=== PATIENT | female | born 1945 | race Two or more races ===

== ENCOUNTER 2019-02-22 | Observation (INO) ==
[2019-02-22] MEDS ORDERED: TYLENOL 325 MG TAB PO ONE ×2 (01:19→01:20)
[2019-02-22] MEDS ORDERED: CATAPRES TAB 0.1 MG PO ONE ×2 (01:19→04:17)
[2019-02-22] MEDS ORDERED: CATAPRES TAB 0.1 MG ONE ×2 (01:20→04:17)
--- NOTE | 2019-02-22 01:36 | DR.HTN ---
HPI Time Seen Time Seen by Provider: 02/22/19 00:30 Primary Care Physician Primary Care Physician: Dr. Marinelli Complaints Chief Complaint:: Patient stated that "my blood pressure just keeps climbing" Patient stated that she had some dizziness and headache on 02/20/19 but none on 02/21/19 just a full feeling in her head. Self Treatment fo Chief Complaint: took Clonidine, Hydralazine,Xanax, Bystolic, Losartan Source History Provided: Patient Mode of Arrival Mode of Arrival: Ambulatory Timing Onset of Chief Complaint: 02/21/19 PMH PMH Past Medical History: Yes Past Medical History: Dyslipidemia and Hypertension Past Surgical History: Yes Surgical History: Other Past Surgical History Comment: Right Ovary removed Family History History of Family Medical Conditions: Yes Family Medical History: Coronary Artery Disease and Hypertension Social History Alcohol Use: None Do you use any recreational Drugs:: No Lives With: Spouse Lives Where: Home infectious screening In the last 2 months have you had wt loss of >10#?: NO Have you had fever, night sweats or hemotysis?: No Have you traveled outside the country in the last 6 months?: No Isolation: Standard PE Vital Signs Vitals: Temperature 97.6 F Pulse Rate 50 Respiratory Rate 18 Blood Pressure [Left Arm] 170/73 Blood Pressure 185/72 O2 Sat by Pulse Oximetry 97 ROR Labs Reviewed Result Diagrams: 02/22/19 02:34 02/22/19 02:34 Laboratory: WBC 5.8 X10^3/uL (3.6-10.0) 02/22/19 02:34 RBC 4.15 X10^6/uL (3.5-5.4) 02/22/19 02:34 Hgb 12.2 g/dL (12.0-16.0) 02/22/19 02:34 Hct 34.7 % (36.0-47.0) L 02/22/19 02:34 MCV 83.7 fL (80.0-100.0) 02/22/19 02:34 MCH 29.3 pg (27.0-34.0) 02/22/19 02:34 MCHC 35.1 g/dL (33.0-35.0) H 02/22/19 02:34 RDW 13.4 % (11.6-16.5) 02/22/19 02:34 Plt Count 279 X10^3/uL (150.0-450.0) 02/22/19 02:34 MPV 7.5 fL (7.4-11.0) 02/22/19 02:34 Neut % (Auto) 69.2 % (42.0-75.0) 02/22/19 02:34 Lymph % (Auto) 19.9 % (21.0-51.0) L 02/22/19 02:34 [place] % (Auto) 9.0 % (0.0-13.0) 02/22/19 02:34 Eos % (Auto) 1.3 % (0.9-2.9) 02/22/19 02:34 Baso % (Auto) 0.6 % (0.2-1.0) 02/22/19 02:34 Neut # (Auto) 4.0 x10^3/uL (2.2-4.8) 02/22/19 02:34 Lymph # (Auto) 1.1 X10^3/uL (1.3-2.9) L 02/22/19 02:34 [place] # (Auto) 0.5 x10^3/uL (0.3-0.8) 02/22/19 02:34 Eos # (Auto) 0.1 x10^3/uL (0.0-0.2) 02/22/19 02:34 Baso # (Auto) 0.0 X10^3/uL (0.0-0.1) 02/22/19 02:34 Absolute Nucleated RBC 0.0 /100WBC 02/22/19 02:34 Sodium 134 mmol/L (136-145) L 02/22/19 02:34 Corrected Sodium 134 mmol/L (136-145) L 02/22/19 02:34 Potassium 3.8 mmol/L (3.5-5.1) 02/22/19 02:34 Chloride 97 mmol/L (98-107) L 02/22/19 02:34 Carbon Dioxide 27.4 mmol/L (21-32) 02/22/19 02:34 BUN 12 mg/dL (7-18) 02/22/19 02:34 Creatinine 0.69 mg/dL (0.55-1.02) 02/22/19 02:34 Est GFR (MDRD) Af Amer > 60 (>60) 02/22/19 02:34 Est GFR (MDRD) Non-Af > 60 (>60) 02/22/19 02:34 Glucose 116 mg/dL (65-99) H 02/22/19 02:34 Calcium 8.8 mg/dL (8.5-10.1) 02/22/19 02:34 Corrected Calcium TNP 02/22/19 02:34 Total Bilirubin 0.40 mg/dL (0.2-1.0) 02/22/19 02:34 AST 16 Units/L (15-37) 02/22/19 02:34 ALT 23 Units/L (12-78) 02/22/19 02:34 Alkaline Phosphatase 67 Units/L (46-116) 02/22/19 02:34 Creatine Kinase 84 Units/L (26-192) 02/22/19 02:34 CK-MB (CK-2) 1.3 ng/mL (0-4.0) 02/22/19 02:34 CK/CKMB % Calc 1.6 % (<4) 02/22/19 02:34 Troponin I < 0.02 ng/mL (0-1.5) 02/22/19 02:34 Total Protein 6.3 g/dL (6.4-8.2) L 02/22/19 02:34 Albumin 3.6 g/dL (3.4-5.0) 02/22/19 02:34 Globulin 2.7 g/dL (2.5-4.5) 02/22/19 02:34 Albumin/Globulin Ratio 1.3 Ratio (1.1-2.1) 02/22/19 02:34 Opioid Opioid Risk Tool Age (Jose Armando box if 16-45): No History of Preadolescent Sexual Abuse: No Total: 0 Total Score Risk Category: Low Risk Copyright: Tone BREAUX predicting aberrant behaviors Diagnosis Discharge Problem: Hypertensive emergency, Hypertension, uncontrolled Instructions Forms: Excuse From Work Patient Portal
[2019-02-22 02:45] LABS: BASOPHILS % (AUTO) 0.6 % (0.2-1.0); EOSINOPHILS # (AUTO) 0.1 x10^3/uL (0.0-0.2); EOSINOPHILS % (AUTO) 1.3 % (0.9-2.9); HEMATOCRIT 34.7 % (36.0-47.0); HEMOGLOBIN 12.2 g/dL (12.0-16.0); LYMPHOCYTES # (AUTO) 1.1 X10^3/uL (1.3-2.9); LYMPHOCYTES % (AUTO) 19.9 % (21.0-51.0); MEAN CORPUSCULAR HEMOGLOBIN 29.3 pg (27.0-34.0); MEAN CORPUSCULAR HGB CONC 35.1 g/dL (33.0-35.0); MEAN CORPUSCULAR VOLUME 83.7 fL (80.0-100.0); MEAN PLATELET VOLUME 7.5 fL (7.4-11.0); MONOCYTES # (AUTO) 0.5 x10^3/uL (0.3-0.8); NEUTROPHILS % (AUTO) 69.2 % (42.0-75.0); PLATELET COUNT 279 X10^3/uL (150.0-450.0); RED BLOOD COUNT 4.15 X10^6/uL (3.5-5.4); RED CELL DISTRIBUTION WIDTH 13.4 % (11.6-16.5); WHITE BLOOD COUNT 5.8 X10^3/uL (3.6-10.0)
[2019-02-22 03:00] LABS: BLOOD UREA NITROGEN 12 mg/dL (7-18); CALCIUM 8.8 mg/dL (8.5-10.1); CARBON DIOXIDE 27.4 mmol/L (21-32); CHLORIDE 97 mmol/L (98-107); COR NA(FOR HYPERGLY) 134 mmol/L (136-145); CREATININE 0.69 mg/dL (0.55-1.02); SODIUM 134 mmol/L (136-145); TROPONIN I < 0.02 ng/mL (0-1.5); eGFR NON BLACK RACES > 60 (>60)
[2019-02-22 03:04] LABS: ALANINE AMINOTRANSFERASE 23 Units/L (12-78); ALBUMIN 3.6 g/dL (3.4-5.0); ALKALINE PHOSPHATASE 67 Units/L (46-116); ASPARTATE AMINO TRANSFERASE 16 Units/L (15-37); CKMB % 1.6 % (<4); CREATINE KINASE 84 Units/L (26-192); CREATINE KINASE MB 1.3 ng/mL (0-4.0); TOTAL PROTEIN 6.3 g/dL (6.4-8.2)
[2019-02-22] MEDS ORDERED: VASOTEC INJ 2.5 MG VIAL IVP ONE ×2 (05:07)
[2019-02-22] MEDS ORDERED: VASOTEC INJ 2.5 MG VIAL ONE (05:08)
[2019-02-22] MEDS ORDERED: VASOTEC INJ 2.5 MG VIAL IVP PRN ×2 (07:49→15:02)
[2019-02-22] MEDS ORDERED: APRESOLINE TAB 25 MG PO SCH (09:00)
[2019-02-22 09:37] LABS: CKMB % 1.8 % (<4); CREATINE KINASE 79 Units/L (26-192); CREATINE KINASE MB 1.4 ng/mL (0-4.0); TROPONIN I < 0.02 ng/mL (0-1.5)
[2019-02-22] MEDS ORDERED: OLMESARTAN HYDROCHLOROTHIAZIDE PO SCH (09:45)
[2019-02-22] MEDS ORDERED: HYDROCHLOROTHIAZIDE 12.5 MG CAP PO SCH (10:00)
[2019-02-22] MEDS: APRESOLINE TAB 25 MG PO SCH ×3 (10:19→21:00)
[2019-02-22] MEDS: BENICAR TAB 40 MG PO SCH (10:19)
[2019-02-22 11:01] VITALS: BMI 32.4
--- NOTE | 2019-02-22 11:16 | DR.H&P ---
H&P History & Physical for Day of: H&P Date: 02/22/19 Chief Complaint Chief Complaint: elevated BP, headache and dizziness Allergies Allergies Allergy/AdvReac Type Severity Reaction Status Date / Time diltiazem [From Cardizem] Allergy Verified 02/22/19 00:34 History of Present Illness History of Present Illness: Ms. Salas is a 73y/o female with a PMH of unco ntrolled HTN. Patient presented to the ED with headache and BP 204/101. She has had uncontrolled BP for over a year and sees [facility]. Her medications were adjusted 3 weeks ago, she was told to take Hydralazine 100 mg twice a day and increase Bystolic to 20 mg daily. She reports no improvement in her BP with this changes. Her SBP usually runs in 160s -190s. She denies headac he, dizziness, chest pain or SOB. She was started on Diltiazem but developed a diffuse rash so that was stopped. She has been taking clonidine 0.1 mg prn if SBP>160. She took one yesterday but did not help. She has tried clonidine patch but reports feeling sick with that. Past Medical History Past Medical History: Dyslipidemia and Hypertension Past Surgical History Surgical History: Ortho Surgery and Other Family History Family Medical History: Diabetes Mellitus, Cancer, Coronary Artery Disease and Hypertension Social History Does patient currently use any type of tobacco product: No Have you used tobacco products in the last 12 months: No Type of Tobacco Use: None Does any household member use tobacco: No Alcohol Use: None Drug Use: None Prescription drug monitoring program results: PDMP was not reviewed Medications Home Medications: diltiazem [From Cardizem] Allergy (Verified 02/22/19 00:34) CONTINUE taking the following medications acetaminophen [Tylenol Arthritis Pain] 1 mg PO PRN PRN 02/22/19 [History] alprazolam 0.25 mg PO BID 02/22/19 [History] aspirin [Aspir-81] 81 mg PO HS 02/22/19 [History] calcium carbonate-vitamin D3 [Calcium 600 with Vitamin D3] 1 cap PO HS 02/22/19 [History] hydralazine 100 mg PO DAILY 02/22/19 [History] [id number] [Centrum Silver Women] 1 tab PO DAILY 02/22/19 [History] nebivolol [Bystolic] 20 mg PO DAILY 02/22/19 [History] olmesartan-hydrochlorothiazide 1 tab PO DAILY 02/22/19 [History] pravastatin 40 mg PO HS 02/22/19 [History] Labs Result Diagrams: 02/22/19 02:34 02/22/19 02:34 Labs: Laboratory WBC 5.8 X10^3/uL (3.6-10.0) 02/22/19 02:34 RBC 4.15 X10^6/uL (3.5-5.4) 02/22/19 02:34 Hgb 12.2 g/dL (12.0-16.0) 02/22/19 02:34 Hct 34.7 % (36.0-47.0) L 02/22/19 02:34 MCV 83.7 fL (80.0-100.0) 02/22/19 02:34 MCH 29.3 pg (27.0-34.0) 02/22/19 02:34 MCHC 35.1 g/dL (33.0-35.0) H 02/22/19 02:34 RDW 13.4 % (11.6-16.5) 02/22/19 02:34 Plt Count 279 X10^3/uL (150.0-450.0) 02/22/19 02:34 MPV 7.5 fL (7.4-11.0) 02/22/19 02:34 Neut % (Auto) 69.2 % (42.0-75.0) 02/22/19 02:34 Lymph % (Auto) 19.9 % (21.0-51.0) L 02/22/19 02:34 [place] % (Auto) 9.0 % (0.0-13.0) 02/22/19 02:34 Eos % (Auto) 1.3 % (0.9-2.9) 02/22/19 02:34 Baso % (Auto) 0.6 % (0.2-1.0) 02/22/19 02:34 Neut # (Auto) 4.0 x10^3/uL (2.2-4.8) 02/22/19 02:34 Lymph # (Auto) 1.1 X10^3/uL (1.3-2.9) L 02/22/19 02:34 [place] # (Auto) 0.5 x10^3/uL (0.3-0.8) 02/22/19 02:34 Eos # (Auto) 0.1 x10^3/uL (0.0-0.2) 02/22/19 02:34 Baso # (Auto) 0.0 X10^3/uL (0.0-0.1) 02/22/19 02:34 Absolute Nucleated RBC 0.0 /100WBC 02/22/19 02:34 Sodium 134 mmol/L (136-145) L 02/22/19 02:34 Corrected Sodium 134 mmol/L (136-145) L 02/22/19 02:34 Potassium 3.8 mmol/L (3.5-5.1) 02/22/19 02:34 Chloride 97 mmol/L (98-107) L 02/22/19 02:34 Carbon Dioxide 27.4 mmol/L (21-32) 02/22/19 02:34 BUN 12 mg/dL (7-18) 02/22/19 02:34 Creatinine 0.69 mg/dL (0.55-1.02) 02/22/19 02:34 Est GFR (MDRD) Af Amer > 60 (>60) 02/22/19 02:34 Est GFR (MDRD) Non-Af > 60 (>60) 02/22/19 02:34 Glucose 116 mg/dL (65-99) H 02/22/19 02:34 Calcium 8.8 mg/dL (8.5-10.1) 02/22/19 02:34 Corrected Calcium TNP 02/22/19 02:34 Total Bilirubin 0.40 mg/dL (0.2-1.0) 02/22/19 02:34 AST 16 Units/L (15-37) 02/22/19 02:34 ALT 23 Units/L (12-78) 02/22/19 02:34 Alkaline Phosphatase 67 Units/L (46-116) 02/22/19 02:34 Creatine Kinase 79 Units/L (26-192) 02/22/19 09:09 CK-MB (CK-2) 1.4 ng/mL (0-4.0) 02/22/19 09:09 CK/CKMB % Calc 1.8 % (<4) 02/22/19 09:09 Troponin I < 0.02 ng/mL (0-1.5) 02/22/19 09:09 Total Protein 6.3 g/dL (6.4-8.2) L 02/22/19 02:34 Albumin 3.6 g/dL (3.4-5.0) 02/22/19 02:34 Globulin 2.7 g/dL (2.5-4.5) 02/22/19 02:34 Albumin/Globulin Ratio 1.3 Ratio (1.1-2.1) 02/22/19 02:34 Review of Systems Constitutional: No Symptoms Reported; denies Fever, Sweats and Weakness Eyes: No Symptoms Reported ENT: No Symptoms Reported Respiratory: SOB with Excertion; denies Cough, Shortness of Breath and Pleuritic Pain Cardiovascular: Edema; denies Chest Pain, Palpitations and Light Headedness Gastrointestinal: denies Nausea, Vomiting, Abdominal Pain, Diarrhea and Constipation Genitourinary: No Symptoms Reported Musculoskeletal: Back Pain Skin: denies No Symptoms Reported Neurological: denies Weakness, Numbness and Confusion Physical Exam Vital Signs: Temperature 98.5 F Pulse Rate 53 Respiratory Rate 18 Blood Pressure [Left Arm] 170/73 Blood Pressure 194/74 O2 Sat by Pulse Oximetry 99 Oriented: Normal Eyes: Normal Throat: Normal Respiratory: Clear Throughout Cardiovascular: Normal, Bradycardia and Edema Auscultation: Bowel Sounds: Normal Palpation: Normal Tenderness: Normal Skin: Normal Musculoskeletal: Normal Psychiatric: Normal Mood Description: Calm Affect: Normal Speech Pattern: Clear and Appropriate Assessment/Plan (1) Hypertensive urgency: Status: Acute Plan: SBP in 200s on admission, currently 185/72. Received clonidine 0.1 mg x 2 and started on Vasotec 1.25 mg IV q6hrs. Will resume home meds with changes: Hydralazine 100 mg TID, Olmesartan/Hctz. Hold Bystolic due to bradycardia. Continue Vasotec (2) Hypertension, uncontrolled: Status: Acute Plan: adjust BP medications, continue Vasotec. Troponin (-) (3) HLD (hyperlipidemia): Status: Acute Plan: continue statin.
[2019-02-22] MEDS ORDERED: XANAX PO ONE (11:38)
[2019-02-22] MEDS ORDERED: XANAX ONE (11:40)
[2019-02-22] MEDS: NexIUM PO SCH (12:05)
[2019-02-22 15:12] LABS: CKMB % 1.6 % (<4); CREATINE KINASE 71 Units/L (26-192); CREATINE KINASE MB 1.1 ng/mL (0-4.0); TROPONIN I < 0.02 ng/mL (0-1.5)
[2019-02-22] MEDS ORDERED: MICRO K EXTEN CAP 10 MEQ PO PRN (19:24)
[2019-02-22] MEDS ORDERED: KLOR-CON PO PRN (19:24)
[2019-02-22] MEDS ORDERED: POTASSIUM CHL 40 MEQ/NS 0.45% 500 ML IV PRN (19:24)
[2019-02-22] MEDS ORDERED: POTASSIUM CHLORIDE LIQ 20 MEQ UDC PO PRN (19:24)
[2019-02-22] MEDS ORDERED: POTASSIUM CHL 60 MEQ/NS 0.45% 500 ML IV PRN (19:24)
[2019-02-22] MEDS ORDERED: K-DUR TAB 20 MEQ PO PRN (19:24)
[2019-02-22] MEDS ORDERED: K-RIDER 10 MEQ/NS 100 ML 10 MEQ/100 ML BAG IV PRN (19:24)
[2019-02-22] MEDS ORDERED: MAGNESIUM SULFATE 1 GRAM/100 mL PREMIX 1 GM/100 ML BAG IV PRN (19:24)
[2019-02-22] MEDS: OSCAL+D or CALTRATE+D PO SCH (20:58)
[2019-02-22] MEDS: PRAVACHOL PO SCH (20:59)
[2019-02-22] MEDS: XANAX PO SCH (20:59)
[2019-02-22] MEDS: TYLENOL 325 MG TAB PO PRN (20:59)
[2019-02-22] MEDS: ASPIRIN EC 81 MG PO SCH (20:59)
[2019-02-22 21:39] LABS: CKMB % 1.5 % (<4); CREATINE KINASE 66 Units/L (26-192); CREATINE KINASE MB < 1.0 ng/mL (0-4.0); TROPONIN I < 0.02 ng/mL (0-1.5)
[2019-02-23] MEDS: APRESOLINE TAB 25 MG PO SCH ×3 (05:04→21:02)
[2019-02-23 05:58] LABS: BASOPHILS % (AUTO) 0.6 % (0.2-1.0); EOSINOPHILS # (AUTO) 0.2 x10^3/uL (0.0-0.2); EOSINOPHILS % (AUTO) 2.6 % (0.9-2.9); HEMATOCRIT 39.3 % (36.0-47.0); HEMOGLOBIN 13.8 g/dL (12.0-16.0); LYMPHOCYTES # (AUTO) 1.1 X10^3/uL (1.3-2.9); LYMPHOCYTES % (AUTO) 19.7 % (21.0-51.0); MEAN CORPUSCULAR HEMOGLOBIN 29.5 pg (27.0-34.0); MEAN CORPUSCULAR HGB CONC 35.1 g/dL (33.0-35.0); MEAN CORPUSCULAR VOLUME 83.9 fL (80.0-100.0); MEAN PLATELET VOLUME 7.8 fL (7.4-11.0); MONOCYTES # (AUTO) 0.4 x10^3/uL (0.3-0.8); MONOCYTES % (AUTO) 7.1 % (0.0-13.0); NEUTROPHILS # (AUTO) 4.1 x10^3/uL (2.2-4.8); PLATELET COUNT 318 X10^3/uL (150.0-450.0); RED BLOOD COUNT 4.68 X10^6/uL (3.5-5.4); RED CELL DISTRIBUTION WIDTH 13.8 % (11.6-16.5); WHITE BLOOD COUNT 5.8 X10^3/uL (3.6-10.0)
[2019-02-23 06:08] LABS: ALANINE AMINOTRANSFERASE 26 Units/L (12-78); ALBUMIN 3.9 g/dL (3.4-5.0); ALKALINE PHOSPHATASE 75 Units/L (46-116); ASPARTATE AMINO TRANSFERASE 17 Units/L (15-37); BLOOD UREA NITROGEN 9 mg/dL (7-18); CALCIUM 9.4 mg/dL (8.5-10.1); CARBON DIOXIDE 29.8 mmol/L (21-32); CHLORIDE 95 mmol/L (98-107); CREATININE 0.62 mg/dL (0.55-1.02); MAGNESIUM 1.9 mg/dL (1.7-2.9); SODIUM 132 mmol/L (136-145); TOTAL PROTEIN 6.9 g/dL (6.4-8.2); eGFR NON BLACK RACES > 60 (>60)
[2019-02-23] MEDS ORDERED: NICOTINE PATCH TD SCH (09:00)
[2019-02-23] MEDS: XANAX PO SCH ×2 (09:20→20:19)
[2019-02-23] MEDS: NexIUM PO SCH ×2 (09:20→10:54)
[2019-02-23] MEDS: BENICAR TAB 40 MG PO SCH (09:25)
[2019-02-23] MEDS: HYDROCHLOROTHIAZIDE 12.5 MG CAP PO SCH (09:25)
--- NOTE | 2019-02-23 10:11 | PCM.PROG ---
Progress Note Progress Note for Day of Date of Exam: 02/23/19 Subjective Subjective: Patient seen at bedside, feeling better. Reports having a rough night, SBP in 200s around 3 am. She had a headache and nausea then but resolved now. Denies chest pain or SOB. Patient has a lot of anxiety and is always monitoring her BP closely. She reports being anxious all the time due to small stressors at home. Past Medical Family Social History Past Med/Fam/Surg Hx: No changes since H&P Allergies: Allergies diltiazem [From Cardizem] Allergy (Verified 02/22/19 00:34) Review of Systems ROS: No change since H&P Vital Signs and I&O's Vital Signs: Temperature 98 F Pulse Rate 67 Respiratory Rate 18 Blood Pressure [Left Arm] 170/73 Blood Pressure 144/65 O2 Sat by Pulse Oximetry 100 Intake and Output: Intake & Output 02/20/19 02/21/19 02/22/19 02/23/19 23:59 23:59 23:59 23:59 Intake Total 1470 / 1470 510 / 510 Balance 1470 / 1470 510 / 510 Physical Exam Oriented: Normal Eyes: Normal Throat: Normal Cardiovascular: Normal and Edema Auscultation: Bowel Sounds: Normal Tenderness: Normal Skin: Normal Musculoskeletal: Normal Psychiatric: Normal Mood Description: Calm Affect: Normal Speech Pattern: Clear and Appropriate Laboratory and Diagnostics Result Diagrams: 02/23/19 05:15 02/23/19 05:15 Labs: Laboratory WBC 5.8 X10^3/uL (3.6-10.0) 02/23/19 05:15 RBC 4.68 X10^6/uL (3.5-5.4) 02/23/19 05:15 Hgb 13.8 g/dL (12.0-16.0) 02/23/19 05:15 Hct 39.3 % (36.0-47.0) 02/23/19 05:15 MCV 83.9 fL (80.0-100.0) 02/23/19 05:15 MCH 29.5 pg (27.0-34.0) 02/23/19 05:15 MCHC 35.1 g/dL (33.0-35.0) H 02/23/19 05:15 RDW 13.8 % (11.6-16.5) 02/23/19 05:15 Plt Count 318 X10^3/uL (150.0-450.0) 02/23/19 05:15 MPV 7.8 fL (7.4-11.0) 02/23/19 05:15 Neut % (Auto) 70.0 % (42.0-75.0) 02/23/19 05:15 Lymph % (Auto) 19.7 % (21.0-51.0) L 02/23/19 05:15 [place] % (Auto) 7.1 % (0.0-13.0) 02/23/19 05:15 Eos % (Auto) 2.6 % (0.9-2.9) 02/23/19 05:15 Baso % (Auto) 0.6 % (0.2-1.0) 02/23/19 05:15 Neut # (Auto) 4.1 x10^3/uL (2.2-4.8) 02/23/19 05:15 Lymph # (Auto) 1.1 X10^3/uL (1.3-2.9) L 02/23/19 05:15 [place] # (Auto) 0.4 x10^3/uL (0.3-0.8) 02/23/19 05:15 Eos # (Auto) 0.2 x10^3/uL (0.0-0.2) 02/23/19 05:15 Baso # (Auto) 0.0 X10^3/uL (0.0-0.1) 02/23/19 05:15 Absolute Nucleated RBC 0.0 /100WBC 02/23/19 05:15 Sodium 132 mmol/L (136-145) L 02/23/19 05:15 Corrected Sodium TNP 02/23/19 05:15 Potassium 4.3 mmol/L (3.5-5.1) 02/23/19 05:15 Chloride 95 mmol/L (98-107) L 02/23/19 05:15 Carbon Dioxide 29.8 mmol/L (21-32) 02/23/19 05:15 BUN 9 mg/dL (7-18) 02/23/19 05:15 Creatinine 0.62 mg/dL (0.55-1.02) 02/23/19 05:15 Est GFR (MDRD) Af Amer > 60 (>60) 02/23/19 05:15 Est GFR (MDRD) Non-Af > 60 (>60) 02/23/19 05:15 Glucose 99 mg/dL (65-99) 02/23/19 05:15 Calcium 9.4 mg/dL (8.5-10.1) 02/23/19 05:15 Corrected Calcium TNP 02/23/19 05:15 Magnesium 1.9 mg/dL (1.7-2.9) 02/23/19 05:15 Total Bilirubin 0.50 mg/dL (0.2-1.0) 02/23/19 05:15 AST 17 Units/L (15-37) 02/23/19 05:15 ALT 26 Units/L (12-78) 02/23/19 05:15 Alkaline Phosphatase 75 Units/L (46-116) 02/23/19 05:15 Creatine Kinase 66 Units/L (26-192) 02/22/19 20:56 CK-MB (CK-2) < 1.0 ng/mL (0-4.0) 02/22/19 20:56 CK/CKMB % Calc 1.5 % (<4) 02/22/19 20:56 Troponin I < 0.02 ng/mL (0-1.5) 02/22/19 20:56 Total Protein 6.9 g/dL (6.4-8.2) 02/23/19 05:15 Albumin 3.9 g/dL (3.4-5.0) 02/23/19 05:15 Globulin 3.0 g/dL (2.5-4.5) 02/23/19 05:15 Albumin/Globulin Ratio 1.3 Ratio (1.1-2.1) 02/23/19 05:15 Plan (1) Hypertensive urgency: Status: Acute Plan: SBP in 200s on admission, Received clonidine 0.1 mg x 2 and started on Vasotec 1.25 mg IV q6hrs. BP improved yesterday but elevated again last night in 200s. Continue hydralazine 100 mg TID, olmesartan 40 q day Will increase HCTZ to 25 mg qday Will DC vasoctec Discussed other causes of elevated BP including anxiety. Patient to follow up with PCP and discuss further management. (2) Hypertension, uncontrolled: Status: Acute Plan: adjust BP medications, Troponin (-) (3) HLD (hyperlipidemia): Status: Acute Plan: continue statin. (4) GERD (gastroesophageal reflux disease): Status: Acute Plan: continue PPI
[2019-02-23] MEDS ORDERED: NexIUM PO SCH (11:30)
[2019-02-23] MEDS: ASPIRIN EC 81 MG PO SCH (20:18)
[2019-02-23] MEDS: PRAVACHOL PO SCH (20:19)
[2019-02-23] MEDS: OSCAL+D or CALTRATE+D PO SCH (20:19)
[2019-02-23] MEDS ORDERED: APRESOLINE INJ 20 MG VIAL ONE (23:59)
[2019-02-24] MEDS ORDERED: APRESOLINE INJ 20 MG VIAL IVP PRN (00:12)
[2019-02-24] MEDS: APRESOLINE TAB 25 MG PO SCH ×3 (05:59→21:56)
[2019-02-24 06:35] LABS: BLOOD UREA NITROGEN 10 mg/dL (7-18); CALCIUM 9.5 mg/dL (8.5-10.1); CARBON DIOXIDE 27.2 mmol/L (21-32); CHLORIDE 93 mmol/L (98-107); SODIUM 130 mmol/L (136-145); eGFR NON BLACK RACES > 60 (>60)
[2019-02-24 07:08] LABS: BASOPHILS % (AUTO) 0.6 % (0.2-1.0); EOSINOPHILS # (AUTO) 0.1 x10^3/uL (0.0-0.2); EOSINOPHILS % (AUTO) 1.8 % (0.9-2.9); HEMATOCRIT 40.9 % (36.0-47.0); HEMOGLOBIN 14.2 g/dL (12.0-16.0); LYMPHOCYTES # (AUTO) 1.2 X10^3/uL (1.3-2.9); LYMPHOCYTES % (AUTO) 18.3 % (21.0-51.0); MEAN CORPUSCULAR HEMOGLOBIN 29.2 pg (27.0-34.0); MEAN CORPUSCULAR HGB CONC 34.7 g/dL (33.0-35.0); MEAN CORPUSCULAR VOLUME 84.2 fL (80.0-100.0); MEAN PLATELET VOLUME 7.3 fL (7.4-11.0); MONOCYTES # (AUTO) 0.6 x10^3/uL (0.3-0.8); MONOCYTES % (AUTO) 8.8 % (0.0-13.0); NEUTROPHILS # (AUTO) 4.5 x10^3/uL (2.2-4.8); NEUTROPHILS % (AUTO) 70.5 % (42.0-75.0); PLATELET COUNT 313 X10^3/uL (150.0-450.0); RED BLOOD COUNT 4.85 X10^6/uL (3.5-5.4); RED CELL DISTRIBUTION WIDTH 13.7 % (11.6-16.5); WHITE BLOOD COUNT 6.4 X10^3/uL (3.6-10.0)
[2019-02-24] MEDS: TYLENOL 325 MG TAB PO PRN (07:35)
[2019-02-24] MEDS: BENICAR TAB 40 MG PO SCH (08:28)
[2019-02-24] MEDS: NexIUM PO SCH (08:29)
[2019-02-24] MEDS: HYDROCHLOROTHIAZIDE 12.5 MG CAP PO SCH (08:29)
[2019-02-24] MEDS: XANAX PO SCH ×2 (08:29→20:46)
[2019-02-24] MEDS: LOVENOX INJ 40 MG SYR SC SCH (17:22)
--- NOTE | 2019-02-24 18:51 | PCM.PROG ---
Progress Note - Progress Note for Day of Date of Exam: 02/24/19 - Subjective Subjective: WAS ADMITTED FOR UNCONTROLLED HYPERTENSION. 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 SHE TAKES HYDRALAZINE 100MG PO BID AND BYSTOLIC 20MG PO DAILY AT HOME. SHE ALSO TAKES CLONIDINE 0.1MG PO PRN. HER HYDRALAZINE WAS INCREASED TO TID ON ADMISSION. TODAY, SHE IS ALERT AND ORIENTED, LYING IN BED ON MORNING ROUNDS. SHE DENIES HEADACHE OR WEAKNESS THIS MORNING. ON EXAMINATION, HEART IS REGULAR IN RATE AND RHYTHM. BILATERAL LUNGS ARE NOTED WITH DIMINISHED LUNG SOUNDS THROUGHOUT. ABDOMEN IS ROUND, SOFT, AND NON-TENDER WITH NORMAL BOWEL SOUNDS NOTED IN ALL QUADRANTS. HER VITALS THIS MORNING ARE: 98.1-74-18-97%-174/79. LABS WERE OBTAINED. ABNORMAL LAB VALUES INCLUDE THE FOLLOWING: SODIUM 130, CHLORIDE 93, GLUCOSE 100. SHE IS CURRENTLY RECEIVING HYDRALAZINE 100MG PO TID, BENICAR 40MG PO DAILY, AND HCTZ 25MG PO DAILY. WE WILL CONTINUE WITH CURRENT PLAN OF CARE TODAY AND OBTAIN AN ECHO AND A RENAL CTA. OTHERWISE, WE PLAN TO FOLLOW UP WITH AM LABS AND CONTINUE TO MONITOR. - Past Medical Family Social History Past Med/Fam/Surg Hx: No changes since H&P Allergies: Allergies diltiazem [From Cardizem] Allergy (Verified 02/22/19 00:34) - Review of Systems ROS: No change since H&P - Vital Signs and I&O's Vital Signs: Temperature 98.6 F Pulse Rate 69 Respiratory Rate 20 Blood Pressure [Left Arm] 170/73 Blood Pressure 148/66 O2 Sat by Pulse Oximetry 97 Intake and Output: Intake & Output 02/22/19 02/23/19 02/24/19 02/25/19 11:59 11:59 11:59 11:59 Intake Total 1979 1750 / 1750 350 / 350 Balance 1979 1750 / 1750 350 / 350 - Physical Exam Oriented: Normal Eyes: Normal Ear: Normal Nose: Normal Throat: Normal Respiratory: Diminished Cardiovascular: Normal Auscultation: Bowel Sounds: Normal Palpation: Normal Tenderness: Normal Skin: Normal Musculoskeletal: Normal Psychiatric: Normal Mood Description: Calm Affect: Normal Speech Pattern: Clear, Appropriate - Laboratory and Diagnostics Result Diagrams: 02/24/19 07:00 02/24/19 05:38 Labs: Laboratory WBC 6.4 X10^3/uL (3.6-10.0) 02/24/19 07:00 RBC 4.85 X10^6/uL (3.5-5.4) 02/24/19 07:00 Hgb 14.2 g/dL (12.0-16.0) 02/24/19 07:00 Hct 40.9 % (36.0-47.0) 02/24/19 07:00 MCV 84.2 fL (80.0-100.0) 02/24/19 07:00 MCH 29.2 pg (27.0-34.0) 02/24/19 07:00 MCHC 34.7 g/dL (33.0-35.0) 02/24/19 07:00 RDW 13.7 % (11.6-16.5) 02/24/19 07:00 Plt Count 313 X10^3/uL (150.0-450.0) 02/24/19 07:00 MPV 7.3 fL (7.4-11.0) L 02/24/19 07:00 Neut % (Auto) 70.5 % (42.0-75.0) 02/24/19 07:00 Lymph % (Auto) 18.3 % (21.0-51.0) L 02/24/19 07:00 [place] % (Auto) 8.8 % (0.0-13.0) 02/24/19 07:00 Eos % (Auto) 1.8 % (0.9-2.9) 02/24/19 07:00 Baso % (Auto) 0.6 % (0.2-1.0) 02/24/19 07:00 Neut # (Auto) 4.5 x10^3/uL (2.2-4.8) 02/24/19 07:00 Lymph # (Auto) 1.2 X10^3/uL (1.3-2.9) L 02/24/19 07:00 [place] # (Auto) 0.6 x10^3/uL (0.3-0.8) 02/24/19 07:00 Eos # (Auto) 0.1 x10^3/uL (0.0-0.2) 02/24/19 07:00 Baso # (Auto) 0.0 X10^3/uL (0.0-0.1) 02/24/19 07:00 Absolute Nucleated RBC 0.1 /100WBC 02/24/19 07:00 Sodium 130 mmol/L (136-145) L 02/24/19 05:38 Corrected Sodium TNP 02/24/19 05:38 Potassium 4.2 mmol/L (3.5-5.1) 02/24/19 05:38 Chloride 93 mmol/L (98-107) L 02/24/19 05:38 Carbon Dioxide 27.2 mmol/L (21-32) 02/24/19 05:38 BUN 10 mg/dL (7-18) 02/24/19 05:38 Creatinine 0.60 mg/dL (0.55-1.02) 02/24/19 05:38 Est GFR (MDRD) Af Amer > 60 (>60) 02/24/19 05:38 Est GFR (MDRD) Non-Af > 60 (>60) 02/24/19 05:38 Glucose 100 mg/dL (65-99) H 02/24/19 05:38 Calcium 9.5 mg/dL (8.5-10.1) 02/24/19 05:38 Corrected Calcium TNP 02/23/19 05:15 Magnesium 1.9 mg/dL (1.7-2.9) 02/23/19 05:15 Total Bilirubin 0.50 mg/dL (0.2-1.0) 02/23/19 05:15 AST 17 Units/L (15-37) 02/23/19 05:15 ALT 26 Units/L (12-78) 02/23/19 05:15 Alkaline Phosphatase 75 Units/L (46-116) 02/23/19 05:15 Creatine Kinase 66 Units/L (26-192) 02/22/19 20:56 CK-MB (CK-2) < 1.0 ng/mL (0-4.0) 02/22/19 20:56 CK/CKMB % Calc 1.5 % (<4) 02/22/19 20:56 Troponin I < 0.02 ng/mL (0-1.5) 02/22/19 20:56 Total Protein 6.9 g/dL (6.4-8.2) 02/23/19 05:15 Albumin 3.9 g/dL (3.4-5.0) 02/23/19 05:15 Globulin 3.0 g/dL (2.5-4.5) 02/23/19 05:15 Albumin/Globulin Ratio 1.3 Ratio (1.1-2.1) 02/23/19 05:15 - Plan (1) Hypertension, uncontrolled Status: Acute Plan: OBTAIN ECHO AND RENAL US TODAY. CONTINUE HCTZ, HYDRALAZINE, AND BENICAR, CONTINUE TO MONITOR
[2019-02-24] MEDS: ASPIRIN EC 81 MG PO SCH (20:46)
[2019-02-24] MEDS: OSCAL+D or CALTRATE+D PO SCH (20:46)
[2019-02-24] MEDS: PRAVACHOL PO SCH (20:46)
[2019-02-25] MEDS: APRESOLINE TAB 25 MG PO SCH (05:52)
[2019-02-25 06:23] LABS: BASOPHILS # (AUTO) 0.1 X10^3/uL (0.0-0.1); BASOPHILS % (AUTO) 2.2 % (0.2-1.0); EOSINOPHILS # (AUTO) 0.1 x10^3/uL (0.0-0.2); EOSINOPHILS % (AUTO) 1.7 % (0.9-2.9); HEMOGLOBIN 13.5 g/dL (12.0-16.0); LYMPHOCYTES # (AUTO) 1.1 X10^3/uL (1.3-2.9); LYMPHOCYTES % (AUTO) 17.5 % (21.0-51.0); MEAN CORPUSCULAR HGB CONC 34.7 g/dL (33.0-35.0); MEAN CORPUSCULAR VOLUME 83.5 fL (80.0-100.0); MEAN PLATELET VOLUME 7.6 fL (7.4-11.0); MONOCYTES # (AUTO) 0.5 x10^3/uL (0.3-0.8); MONOCYTES % (AUTO) 8.7 % (0.0-13.0); NEUTROPHILS # (AUTO) 4.4 x10^3/uL (2.2-4.8); NEUTROPHILS % (AUTO) 69.9 % (42.0-75.0); PLATELET COUNT 317 X10^3/uL (150.0-450.0); RED BLOOD COUNT 4.67 X10^6/uL (3.5-5.4); RED CELL DISTRIBUTION WIDTH 13.5 % (11.6-16.5); WHITE BLOOD COUNT 6.3 X10^3/uL (3.6-10.0)
--- NOTE | 2019-02-25 06:48 | CT ---
HISTORY: Malignant hypertension Study: Renal CTA with and without contrast Comparison: None Technique: Axial pre and postcontrast images with coronal, sagittal, and three-dimensional maximum intensity projection images obtained and evaluated. Dose reduction procedures were used with mA/kv adjusted for body size. Findings: Vascular findings: Calcific atherosclerotic changes present throughout a nondilated abdominal aorta. No evidence for dissection. The origins and visualized portions of the celiac axis and SMA are normal. The origins of both renal arteries are well visualized and patent. The main renal arteries are normal throughout their course. The JOSIAH is normal. The common iliac arteries, internal iliac arteries and external iliac arteries demonstrate mild calcific atherosclerotic change but no evidence for significant stenosis or obstruction. Nonvascular findings: The lung bases are clear. The liver, spleen, adrenal glands, and pancreas are within normal limits. No opaque stones are visible within the gallbladder. The kidneys are unobstructed and without stones or masses. No ureteral calculi are identified. No intraperitoneal or retroperitoneal lymphadenopathy of significance is identified. There are no findings suggestive of enteritis, diverticulitis, or colitis. Examination of the pelvis demonstrated no evidence for pelvic masses, pelvic fluid, or pelvic lymphadenopathy. No bladder abnormality is identified. No significant lytic or blastic lesions are identified. IMPRESSION: Diffuse calcific atherosclerotic change in a nondilated abdominal aorta demonstrating no evidence for dissection. Normal appearing celiac axis, SMA, JOSIAH, and both renal arteries. Reported By:
[2019-02-25 06:56] LABS: ALANINE AMINOTRANSFERASE 27 Units/L (12-78); ALBUMIN 3.6 g/dL (3.4-5.0); ALKALINE PHOSPHATASE 69 Units/L (46-116); ASPARTATE AMINO TRANSFERASE 17 Units/L (15-37); BLOOD UREA NITROGEN 10 mg/dL (7-18); CALCIUM 9.1 mg/dL (8.5-10.1); CARBON DIOXIDE 24.8 mmol/L (21-32); CHLORIDE 95 mmol/L (98-107); COR NA(FOR HYPERGLY) 129 mmol/L (136-145); CREATININE 0.67 mg/dL (0.55-1.02); SODIUM 129 mmol/L (136-145); TOTAL PROTEIN 6.5 g/dL (6.4-8.2); eGFR NON BLACK RACES > 60 (>60)
[2019-02-25 08:17] VITALS: BP 154/69
[2019-02-25] MEDS: BENICAR TAB 40 MG PO SCH (08:50)
[2019-02-25] MEDS: LOVENOX INJ 40 MG SYR SC SCH (08:50)
[2019-02-25] MEDS: HYDROCHLOROTHIAZIDE 12.5 MG CAP PO SCH (08:50)
[2019-02-25] MEDS: XANAX PO SCH (08:51)
[2019-02-25] MEDS: NexIUM PO SCH (08:51)
== END 2019-02-25 11:15 | disposition home or self-care (01) ==
LOC: ER 00:14 → ICU 00:14
PROVIDERS: ADMIT Family Medicine; ATTEND Internal Medicine
DX: R94.31 Abnormal electrocardiogram [ECG] [EKG]; K21.9 Gastro-esophageal reflux disease without esophagitis; I16.0 Hypertensive urgency; R51 Headache; I10 Essential (primary) hypertension; E78.5 Hyperlipidemia, unspecified; R00.1 Bradycardia, unspecified; I25.10 Atherosclerotic heart disease of native coronary artery without angina pectoris; R42 Dizziness and giddiness; E78.2 Mixed hyperlipidemia
CPT/HCPCS: 36415; 74174; 80048; 80053; 82550; 82553; 83735; 84484; 85025; 93005; 93306; 96365; 96372; 96374; 99284; A4216; A4222; G0378; J0360; J1650; J3490